=== PATIENT | male | born 1935 | race Caucasian/White ===

== ENCOUNTER 2017-04-17 15:29 | Emergency (ER) | payer MEDICARE ==
[2017-04-17] MEDS ORDERED: HEPARIN SOD (PORCINE) 5000 UNITS/ML VIAL (15:30)
[2017-04-17] MEDS ORDERED: CLOPIDOGREL 75 MG TAB (15:30)
[2017-04-17] MEDS ORDERED: HEPARIN 25,000 UNITS/250 ML D5W BAG (100 UNITS/ML) (15:30)
[2017-04-17] MEDS ORDERED: TENECTEPLASE 50 MG KIT (TNKase)(J3101) (15:30)
[2017-04-17] MEDS ORDERED: ASPIRIN 81 MG CHEW TABLET (15:30)
[2017-04-17] MEDS: ASPIRIN 81 MG CHEW TABLET PO (16:09)
[2017-04-17] MEDS: CLOPIDOGREL 75 MG TAB PO (16:09)
[2017-04-17] MEDS: HEPARIN SOD (PORCINE) 5000 UNITS/ML VIAL IV (16:10)
[2017-04-17 16:13] LABS: BASO % 0.4 % (0.0-1.0); EOS # 0.2 10^3/uL (0.0-0.50); EOS % 1.6 % (0.0-3.0); HEMATOCRIT 45.7 % (42.0-52.0); HEMOGLOBIN 15.2 g/dl (14.0-18.0); IMMATURE GRANULOCYTE % 0.2 % (0-0); LYMPH # 2.2 10^3/uL (1.5-4.5); LYMPH % 23.8 % (24.0-44.0); MEAN CORPUSCULAR HEMOGLOBIN 27.2 pg (27.0-33.0); MEAN CORPUSCULAR HGB CONC 33.3 g/dl (32.0-36.5); MEAN CORPUSCULAR VOLUME 81.9 fl (80.0-96.0); MONO # 0.7 10^3/uL (0.0-0.8); MONO % 7.8 % (0.0-5.0); NEUTROPHILS # 6.1 10^3/uL (1.8-7.7); NEUTROPHILS % 66.2 % (36.0-66.0); PLATELET COUNT, AUTOMATED 220 10^3/uL (150-450); RED BLOOD COUNT 5.58 10^6/uL (4.30-6.10); RED CELL DISTRIBUTION WIDTH 14.2 % (11.5-14.5); WHITE BLOOD COUNT 9.2 10^3/uL (4.0-10.0)
[2017-04-17] MEDS: HEPARIN DRIP 25,000 UNITS in APPROPRIATE DILUENT 1 EA IV (16:14)
[2017-04-17] MEDS: TENECTEPLASE 50 MG KIT (TNKase)(J3101) IV (16:14)
[2017-04-17 16:23] LABS: INR 1.02; PROTHROMBIN TIME 13.5 SECONDS (12.4-14.5)
[2017-04-17 16:24] LABS: PARTIAL THROMBOPLASTIN TIME 28.6 SECONDS (26.8-37.9)
[2017-04-17 16:37] LABS: ANION GAP 5 MEQ/L (8-16); BLOOD UREA NITROGEN 17 MG/DL (7-18); CALCIUM LEVEL 9.6 MG/DL (8.8-10.2); CARBON DIOXIDE LEVEL 32 MEQ/L (21-32); CHLORIDE LEVEL 104 MEQ/L (98-107); CK-MB VALUE MASS 2.8 NG/ML (0.0-3.6); CPK CREATINE PHOSPHOKINASE 159 U/L (39-308); CREATININE FOR GFR 0.98 MG/DL (0.70-1.30); GLOMERULAR FILTRATION RATE > 60.0 (>35); GLUCOSE, FASTING 109 MG/DL (70-100); MB/CK RELATIVE INDEX 1.76 (< OR =4); NT-PRO BNP 202 PG/ML (<450); POTASSIUM SERUM 3.9 MEQ/L (3.5-5.1); SODIUM LEVEL 141 MEQ/L (136-145); TROPONIN I < 0.02 NG/ML (< 0.10)
== END 2017-04-17 17:37 | disposition short-term general hospital (02) ==
LOC: M ED 15:29
DX: I21.19 ST elevation (STEMI) myocardial infarction involving other coronary artery of inferior wall (principal); I10 Essential (primary) hypertension; E78.5 Hyperlipidemia, unspecified; Z85.818 Personal history of malignant neoplasm of other sites of lip, oral cavity, and pharynx; Z98.890 Other specified postprocedural states; Z95.1 Presence of aortocoronary bypass graft
CPT/HCPCS: J3101

== ENCOUNTER → 2017-04-21 | Outpatient (REF) | payer MEDICARE ==
[2017-04-21 20:21] LABS: HEMATOCRIT 43.5 % (42.0-52.0); HEMOGLOBIN 14.5 g/dl (14.0-18.0); MEAN CORPUSCULAR HEMOGLOBIN 27.2 pg (27.0-33.0); MEAN CORPUSCULAR HGB CONC 33.3 g/dl (32.0-36.5); MEAN CORPUSCULAR VOLUME 81.6 fl (80.0-96.0); PLATELET COUNT, AUTOMATED 222 10^3/uL (150-450); RED BLOOD COUNT 5.33 10^6/uL (4.30-6.10); RED CELL DISTRIBUTION WIDTH 14.3 % (11.5-14.5)
== END ==
LOC: M LAB REF 18:32
DX: R21 Rash and other nonspecific skin eruption (principal)
CPT/HCPCS: 85027

== ENCOUNTER → 2018-04-22 | Outpatient (REF) | payer MEDICARE ==
[~2018-04-22] MED LIST: ASPI81TA85 PO; AVOD0.5C PO; CORE6.25 PO; FINACRY PO; FLOM0.4C39 PO; HYDR-3713 PO; HYDR25TAB PO; KLOR1TAB77 PO; LEVA1TAB2 PO; RANI15TA PO; TYLE500T78 PO
[2018-04-22 21:01] LABS: HEMATOCRIT 44.2 % (42.0-52.0); HEMOGLOBIN 14.1 g/dl (13.5-17.5); MEAN CORPUSCULAR HEMOGLOBIN 26.8 pg (27.0-33.0); MEAN CORPUSCULAR HGB CONC 31.9 g/dl (32.0-36.5); PLATELET COUNT, AUTOMATED 283 10^3/uL (150-450); RED BLOOD COUNT 5.26 10^6/uL (4.30-6.10); WHITE BLOOD COUNT 7.1 10^3/uL (4.0-10.0)
[2018-04-22 21:18] LABS: BLOOD UREA NITROGEN 20 MG/DL (7-18); CALCIUM LEVEL 8.6 MG/DL (8.8-10.2); CARBON DIOXIDE LEVEL 29 MEQ/L (21-32); CHLORIDE LEVEL 101 MEQ/L (98-107); CREATININE FOR GFR 0.91 MG/DL (0.70-1.30); GLOMERULAR FILTRATION RATE > 60.0 (>35); GLUCOSE, FASTING 70 MG/DL (70-100); POTASSIUM SERUM 4.6 MEQ/L (3.5-5.1); SODIUM LEVEL 138 MEQ/L (136-145)
== END ==
LOC: M LAB REF 09:58
PROVIDERS: ATTEND Internal Medicine
DX: S70.01XA Contusion of right hip, initial encounter (principal); S20.219A Contusion of unspecified front wall of thorax, initial encounter

== ENCOUNTER 2019-05-03 16:19 | Inpatient (IN) | payer MEDICARE ==
[~2019-05-03] VITALS: Ht 170.2 cm; Wt 71.7 kg
[~2019-05-03 16:19] MED LIST changes: +HYDR-2541 PO; -HYDR25TAB PO
[2019-05-03 17:32] LABS: BASO % 0.4 % (0.0-1.0); EOS # 0.1 10^3/uL (0.0-0.5); EOS % 0.7 % (0.0-3.0); HEMATOCRIT 48.6 % (42.0-52.0); HEMOGLOBIN 15.8 g/dl (13.5-17.5); LYMPH # 1.6 10^3/uL (1.5-5.0); MEAN CORPUSCULAR HEMOGLOBIN 26.9 pg (27.0-33.0); MEAN CORPUSCULAR HGB CONC 32.5 g/dl (32.0-36.5); MEAN CORPUSCULAR VOLUME 82.7 fl (80.0-96.0); MONO # 0.5 10^3/uL (0.0-0.8); MONO % 4.7 % (0.0-5.0); NEUTROPHILS # 9.1 10^3/uL (1.5-8.5); NEUTROPHILS % 79.7 % (36.0-66.0); PLATELET COUNT, AUTOMATED 228 10^3/uL (150-450); RED BLOOD COUNT 5.88 10^6/uL (4.30-6.10); WHITE BLOOD COUNT 11.4 10^3/uL (4.0-10.0)
[2019-05-03 17:44] LABS: INR 1.06; PROTHROMBIN TIME 13.6 SECONDS (11.8-14.0)
[2019-05-03 17:45] LABS: PARTIAL THROMBOPLASTIN TIME 29.9 SECONDS (25.0-38.4)
[2019-05-03 18:00] LABS: BLOOD UREA NITROGEN 27 MG/DL (7-18); CALCIUM LEVEL 9.6 MG/DL (8.8-10.2); CARBON DIOXIDE LEVEL 31 MEQ/L (21-32); CHLORIDE LEVEL 102 MEQ/L (98-107); CK-MB VALUE MASS 1.4 NG/ML (<3.6); CPK CREATINE PHOSPHOKINASE 88 U/L (39-308); CREATININE FOR GFR 1.26 MG/DL (0.70-1.30); GLOMERULAR FILTRATION RATE 58.2 (>35); GLUCOSE, FASTING 127 MG/DL (70-100); MB/CK RELATIVE INDEX 1.59 (< OR =4); POTASSIUM SERUM 3.5 MEQ/L (3.5-5.1); SODIUM LEVEL 138 MEQ/L (136-145); TROPONIN I < 0.02 NG/ML (< 0.10)
--- NOTE | 2019-05-03 18:12 | REP ---
Portable chest x-ray: Sitting AP view. History: CVA. Comparison chest x-ray: April 17, 2017. Findings: There is a right-sided Dceqqs-O-Htyo catheter in place with its tip in the expected location of the superior vena cava. The patient is status post prior median sternotomy. Monitoring electrodes are seen. Heart is not felt to be enlarged. Pulmonary vasculature is not increased. Lung house are clear. Pleural angles are sharp. Impression: Prior sternotomy. Oowevh-F-Wsge catheter. No active disease. Electronically Signed by Derik Strong MD 05/04/2019 10:13 A
--- NOTE | 2019-05-03 18:13 | REP ---
CT brain without contrast: History: CVA. No comparison study. CT findings: Digital preliminary glass sander radiograph is unremarkable. The patient is edentulous. Bone window settings demonstrate an intact bony calvarium. There is a mucous retention cyst visible incidentally in the left maxillary sinus. This measures 1.7 cm in diameter. Visualized paranasal sinuses are otherwise clear. No intra orbital abnormality is appreciated. There is moderate vascular calcification in the distal internal carotid and distal vertebral arteries. On soft tissue window settings, there is mild generalized atrophy. There is no evidence of intracranial hemorrhage. Mild small vessel changes are seen in the periventricular white matter of the supratentorial brain bilaterally. There is no evidence of infarct, mass, extra-axial fluid collection or midline shift. Impression: Diffuse atrophy and vascular calcification. Mild small vessel changes. No acute intracranial abnormality. Electronically Signed by Derik Strong MD 05/04/2019 10:13 A
[2019-05-03] MEDS ORDERED: TETRACAINE 0.5% OPHTH SOLN 4ML OU ONE (19:15)
[2019-05-03] MEDS ORDERED: CARVedilol 6.25 MG TAB PO ONE (20:00)
[2019-05-03] MEDS ORDERED: ACETAMINOPHEN 325 MG TAB PO ONE (20:15)
--- NOTE | 2019-05-03 20:22 | ECGEPIP ---
[facility] - ED Test Date: 2019-05-03 Pat Name: LISSETH BLACKBURN Department: Room: - Gender: Male [employer] Operator: YOHANA : 1935 Requested By: Jose Edmondson Order Number: [id number] Reading MD: Margarita Cee Measurements Intervals [place] Rate: 63 P: 38 UT: 225 QRS: 31 QRSD: 109 T: 50 QT: 418 QTc: 429 Interpretive Statements SINUS RHYTHM WITH FIRST DEGREE AV BLOCK WITH FREQUENT VENTRICULAR PREMATURE COMPLEXES INFERIOR MYOCARDIAL INFARCTION, PROBABLY OLD NSTTW abnormalities INCREASED ECTOPY 04/17/17 Electronically Signed on 05-03-2019 20:21:47 EST by Margarita Cee
[2019-05-03] MEDS ORDERED: ASPI-161 PO (21:08)
[2019-05-03] MEDS ORDERED: ACET-897 PO (21:08)
[2019-05-03] MEDS ORDERED: BRIL90TA PO (21:08)
[2019-05-03] MEDS ORDERED: HYDR25TAB PO (21:08)
[2019-05-03] MEDS ORDERED: VITMTA PO (21:08)
[2019-05-03] MEDS ORDERED: POLYOPD OU (21:08)
[2019-05-03] MEDS ORDERED: CARV12.5 PO (21:08)
[2019-05-03] MEDS ORDERED: FAMO1TAB11 PO (21:08)
[2019-05-03] MEDS ORDERED: ACETAMINOPHEN 500 MG TAB PO PRN (22:45)
[2019-05-03] MEDS ORDERED: FAMOTIDINE 20 MG TAB PO PRN (22:45)
[2019-05-03] MEDS ORDERED: POTASSIUM CHLORIDE 10 MEQ SR TABLET PO ONE (22:45)
[2019-05-03] MEDS ORDERED: POLYVINYL ALCOHOL OPHTH SOLN 15 ML(LIQUITEARS) OU PRN (22:45)
[2019-05-03 22:48] LABS: ERYTHROCYTE SEDIMENTATION RATE 4 mm/hr (0-20)
[2019-05-04 00:53] VITALS: BP 133/77
[2019-05-04] MEDS: TICAGRELOR 90 MG TABLET (BRILINTA) PO SCH ×3 (01:33→21:36)
[2019-05-04 06:00] VITALS: BP 125/72
--- NOTE | 2019-05-04 07:54 | HPE ---
DATE OF ADMISSION: 05/03/2019 PRIMARY CARE PROVIDER: Dr. Margarita Welch CHIEF COMPLAINT: Left hand numbness and weakness, right sided eye pain and headache. HISTORY OF PRESENT ILLNESS: This is an 83-year-old male who presented to the emergency department after having left hand weakness starting yesterday. He reports that yesterday he noticed that his left hand became numb and weak. He lost his steamer tender strength and was dropping things. He did not think much of it, and he reported to the emergency department today when he developed a right-sided headache at noon. He also developed right eye pain with this, but denies any changes to his vision. He denies any dysarthria or difficulty walking. He says that his left arm numbness has completely resolved and he is able to steamer tender things again. He denies any other diminished sensation or decreased motor strength. He denies any changes to his hearing, taste or smell. He describes his right eye pain as more achy in nature. He denies odynophagia. PAST MEDICAL HISTORY: 1. Benign prostatic hypertrophy (BPH) status post transurethral resection of prostate (TURP) and transurethral electro repolarization of the prostate. 2. Hypertension. 3. Hyperlipidemia, has tried multiple statin medications and has been intolerant of them. 4. Coronary artery disease status post open heart surgery with four-vessel bypass and subsequent percutaneous coronary intervention (PCI) with stenting two years ago, on Brilinta. 5. History of a heart attack in 2004. 6. Throat cancer status post chemotherapy. 7. 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 PAST SURGICAL HISTORY: 1. Open heart surgery in 2004 with a four-vessel bypass. 2. Neck dissection with removal of lymph nodes from his lips, cheeks and neck. 3. Lip surgery in 2012 for skin cancer. 3. TURP in 2013. Home medications: - Tylenol 1000 mg by mouth every 6 hours as needed - aspirin 81 mg daily - carvedilol 12.5 mg by mouth twice a day - famotidine 20 mg by mouth as needed for acid reflux - Hydrochlorothiazide 25 mg by mouth every two days - multivitamin 1 tablet by mouth daily - Artificial tears 1 drop both eyes four times a day for dry eyes - Brilinta 90 mg by mouth twice a day FAMILY HISTORY Mother and father both . He has one son who from bone cancer age 50. SOCIAL HISTORY: The patient lives alone. He is a former smoker and quit in the early 70s after only a couple of years of smoking. He denies any alcohol or drug use. He does have a manuel tzu and a cat at home. He does live alone. Denies any recent travel. ALLERGIES: STATIN MEDICATIONS (intolerant with muscle cramps). REVIEW OF SYSTEMS: Constitutional: Denies any weight loss, fevers, chills or night sweats. HEENT: Denies vision changes, double vision, scotomas, runny nose, epistaxis, sinus pain, tinnitus, sore throat or odynophagia. Does admit to a right-sided headache with some eye pain Cardiovascular: Denies chest pain, shortness of breath, paroxysmal nocturnal dyspnea, orthopnea, edema or palpitations. Respiratory: Denies any cough, sputum production wheezes, hemoptysis or shortness of breath Gastrointestinal: Denies any abdominal pain, nausea, vomiting, diarrhea, constipation, obstipation, hematemesis, hematochezia, melena or tenesmus. Genitourinary: Positive for history of BPH but denies any incontinence, dysuria, hematuria, nocturia, polyuria or hesitancy Musculoskeletal: Positive for some right lower extremity chronic arthritis. Denies any new muscle pain, joint swelling or decreased range of motion or crepitus. Integumentary: Denies any new pruritus, rashes, stria or lesions. Neuro: Denies any changes to his vision, smell, hearing or taste, denies seizures. Positive for right-sided headache with left-sided upper extremity paresthesias, anesthesias and weakness as described above. Psychiatric: Denies depression, anxiety, paranoia, anhedonia or episodes of sia. Endocrine: Denies mood swings, diarrhea, increased appetite, tremor, palpitations, constipation, dry skin, polydipsia, polyuria or polyphagia. Hematologic: Denies any easy bruising or bleeding, anemia, purpura or petechiae. Lymphatic: Denies any new lumps or bumps anywhere. PHYSICAL EXAMINATION: Vitals: Temperature 96.8, pulse 72 and regular, respiratory rate 20 and unlabored, blood pressure 116/75, pulse oximetry is 95% on room air. General: Elderly male in no acute distress lying in the stretcher. He is pleasant and cooperative. HEENT: Atraumatic, normocephalic. Extraocular eye movements are intact. He is wearing hearing aids. Mucous membranes are moist. No facial drooping is noted. The patient does not have his own teeth. He has upper and lower dentures. Neck: Supple, no masses. No thyromegaly. No carotid bruits appreciated. Chest: There is a port in the right upper side of his chest. Lungs are clear to auscultation bilaterally. No wheezes, rhonchi or rales. Heart: Regular rate and rhythm. Faint 04/27 systolic murmur heard best at the apex. No rubs or gallops appreciated. Abdomen: Normoactive bowel sounds, nontender, nondistended. Back: No costovertebral angle tenderness angle (CVA) bilaterally. Skin: No bruises or rashes noted. Extremities: Moving spontaneously. Neuro: Cranial nerves II-XII are grossly intact though the patient does have some left visual field deficits in the periphery. Reflexes were unable to be tested as the patient had a difficult time relaxing and following directions. He is alert and oriented to himself, the date and where he is as well as his situation. Sensation is intact throughout. Extraocular eye movements are intact, tongue is midline and the uvula rises symmetrically. He has 4/5 muscle strength in the left upper extremity, other extremities are 5/5 muscle strength. LABORATORY DATA: CBC: WBC 11.4, hemoglobin 15.8, hematocrit 48.6, platelets 223, differential shows 80% neutrophils 14% lymphocytes. Chemistry: Sodium 138, potassium 3.5, chloride 102, carbon dioxide 31, anion gap 5, BUN 27, creatinine 1.26, fasting glucose is 127, calcium 9.6, creatinine kinase 88, CK-MB 1.4, troponin less than 0.02. Coagulation: PT 13.6, INR 1.06, APTT 29.9. Blood type A+, antibody screen negative. IMAGING: Head CT done 05/03/2019 showed diffuse atrophy and vascular calcification with mild small vessel changes. No acute intracranial abnormality is noted. Chest x-ray done 05/03/2019 showed prior sternotomy with an Bkplsw-[id number] catheter in the right upper chest. No acute disease. Electrocardiogram: Sinus rhythm at 63 beats per minute with a first-degree block and frequent premature ventricular contractions (PVCs). Old inferior myocardial infarction with nonspecific ST-T wave abnormalities and increased ectopy from 04/17/2017. ASSESSMENT: This is an 83-year-old male with history of coronary vascular disease who is presenting after a left-sided upper extremity paresthesias and weakness with right-sided headache and eye pain. He will be admitted inpatient as we expect more than two midnights with routine labs and orders. PLAN: 1. Transient ischemic attack (TIA) versus an ischemic stroke. CT of the head showed diffuse atrophy and vascular calcification. Most of his symptoms have resolved. Will obtain an MRI and MRA as well as carotid ultrasounds. The patient is statin intolerant, so that has not been started at this time. According to the patient he has tried atorvastatin, rosuvastatin, simvastatin and pravastatin. He is already on the Brilinta as well as aspirin due to his prior cardiac stent. Will also observe on telemetry. 2. Hypertensive heart disease with coronary artery disease status post open heart surgery and coronary stenting. Continue dual antiplatelet therapy with aspirin and Brilinta. Continue his home carvedilol and hydrochlorothiazide. 3. Hyperlipidemia. Statin intolerant. The patient does say that his cholesterol has been high in the past and he has not tolerated multiple different statin therapies. 4. Gastroesophageal reflux disease. Continue home famotidine. 5. Deep venous thrombosis (DVT) prophylaxis will be heparin. DISPOSITION: Inpatient as we expect greater than two midnights.
--- NOTE | 2019-05-04 08:00 | REP ---
Clinical: Transient ischemic attack . Technique: Esteban scale and color Doppler evaluation using linear high frequency transducer Findings: Two-dimensional esteban scale and color images demonstrate normal arterial lumen with laminar flow and no appreciable narrowing. Color Doppler interrogation demonstrates normal arterial wave patterns and velocities with no significant spectral broadening. Normal flow direction is appreciated in the bilateral vertebral arteries. RIGHT (cm/s) LEFT (cm/s) ICA peak systolic velocity 162.5 102.2 ICA diastolic velocity 52.4 34.1 ECA peak systolic velocity 142.3 118.5 CCA peak systolic velocity 103.5 106.6 ICA/CCA ratio 1.6 1.0 Impression: Based on set standards, narrowing through the right bulb/proximal ICA at the 50-69% range and through the left bulb/proximal ICA at the less than 50% range. Electronically Signed by Michael Triplett MD 05/04/2019 07:53 A
[2019-05-04] MEDS: HEPARIN SOD (PORCINE) 5000 UNITS/ML VIAL (J1644 PER 1000UNITS) SC SCH ×2 (08:49→21:35)
[2019-05-04] MEDS: CARVedilol 12.5 MG TAB PO SCH ×2 (08:49→21:36)
[2019-05-04] MEDS: MULTIVITAMINS/MINERALS THERAP 1 TAB PO SCH (08:49)
[2019-05-04] MEDS: ASPIRIN 81 MG ENTERIC TAB PO SCH (08:50)
--- NOTE | 2019-05-04 10:43 | REPVR ---
PROCEDURE INFORMATION: Exam: MR Head Without Contrast Exam date and time: 05/04/2019 9:49 AM Age: 83 years old Clinical indication: Dizziness; Additional info: TIA v ischemic stroke TECHNIQUE: Imaging protocol: MR of the head without contrast. COMPARISON: CT Head without contrast 05/03/2019 4:48 PM FINDINGS: Brain: Small non contiguous foci of clustered true diffusion restriction in the right cronin radiata, also right precentral gyrus in keeping with punctate acute to subacute infarcts; there is correlative cytotoxic edema on the T2 weighted imaging, no evidence of hemorrhagic conversion. The brain otherwise demonstrates mild generalized volume loss. Patchy foci of increased signal intensity in the deep white matter most likely representing mild to moderate chronic small vessel ischemic change. Ventricles: The ventricles appear mildly enlarged in keeping with volume loss. Bones/joints: Unremarkable. Soft tissues: Unremarkable. Sinuses: Trace ethmoid mucosal thickening. Retention cyst or polyp in the left maxillary sinus. Mastoid air cells: Normal as visualized. No mastoid effusion. Orbits: Unremarkable. IMPRESSION: Several focal, recent acute to subacute right cronin radiata and frontal cortical infarcts. Electronically signed by: Maribel Saha On 05/04/2019 10:43:37 AM
--- NOTE | 2019-05-04 10:49 | REPVR ---
PROCEDURE INFORMATION: Exam: MR Angiogram Head Without Contrast, Arteries Exam date and time: 05/04/2019 9:49 AM Age: 83 years old Clinical indication: Weakness; Additional info: TIA v ischemic stroke TECHNIQUE: Imaging protocol: MR angiogram head without contrast. Exam focused on the arteries. 3D rendering: MIP and/or 3D reconstructed images were created by the technologist. COMPARISON: CT Head without contrast 05/03/2019 4:48 PM FINDINGS: Right internal carotid artery: Unremarkable. Intracranial segment is patent with no significant stenosis. No aneurysm. Right anterior cerebral artery: Unremarkable. No occlusion or significant stenosis. No aneurysm. Right middle cerebral artery: Unremarkable. No occlusion or significant stenosis. No aneurysm. Right posterior cerebral artery: origin. No occlusion or significant stenosis. No aneurysm. 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 No occlusion or significant stenosis. No aneurysm. Left internal carotid artery: Unremarkable. Intracranial segment is patent with no significant stenosis. No aneurysm. Left anterior cerebral artery: Unremarkable. No occlusion or significant stenosis. No aneurysm. Left middle cerebral artery: Unremarkable. No occlusion or significant stenosis. No aneurysm. Left posterior cerebral artery: Unremarkable. No occlusion or significant stenosis. No aneurysm. Left vertebral artery: Unremarkable. No occlusion or significant stenosis. No aneurysm. Basilar artery: Unremarkable. No occlusion or significant stenosis. No aneurysm. IMPRESSION: No major proximal vessel branch occlusion seen. Electronically signed by: Maribel Saha On 05/04/2019 10:48:57 AM
[2019-05-04 10:54] LABS: CHOLESTEROL RISK RATIO 6.825 (<5)
[2019-05-04 14:00] VITALS: BP 116/73
--- NOTE | 2019-05-04 15:07 | IPNPDOC ---
Subjective Date Seen The patient was seen on 05/04/19. Subjective Chief Complaint/HPI Mr. Palomino is an 83 year old male admitted to the hospital for suspected stroke; pt had noted tingling in his left fingers the night before, in the morning, he tried to pick something up and had lost his community worker strength. He developed a headache over the right eye which prompted him to go to an urgent care center. He was then transferred to [facility] ED. His community worker strength returned soon after he was seen in the ED. His BP was elevated over baseline and he was given his home Coreg; after which his BP stabilized. Pt denied missing any doses of his medications at home. Pt is seen with his [id number]-ru-uqc this afternoon who provides some of the history. Mr. Palomino sees Dr. Irvin (hr associate) who has tried several statins in the past, however, pt is extremely intolerant of them. Pt has been on Brilinta for ~ 1.5 years (since his MS); he is intolerant of Clopidogrel which causes a rash. Other systems per HPI Objective Physical Examination General Exam: Positive: Alert, Cooperative, No Acute Distress Eye Exam: Positive: Conjunctiva & lids normal, EOMI; Negative: Sclera icteric ENT Exam: Positive: Atraumatic, Mucous membr. moist/pink Neck Exam: Positive: Supple; Negative: thyromegaly Chest Exam: Positive: Clear to auscultation, Normal air movement Heart Exam: Positive: Rate Normal, Irregular Rhythm (frequent VPCs vs A-fib ), Normal S1, Normal S2, Murmurs (2/6SM ) Abdomen Exam: Positive: Normal bowel sounds, Soft; Negative: Tenderness, Hepatospenomegaly Extremity Exam: Positive: Normal pulses; Negative: Clubbing, Cyanosis, Edema Skin Exam: Positive: Nl turgor and temperature Neuro Exam: Positive: Strength at 5/5 X4 ext, Cranial Nerves 3-12 NL, Other (paralysis of the L lip 2/2 skin cancer and surgical exision ); Negative: Normal Speech Psych Exam: Positive: Mood NL, Memory Intact, Oriented x 3 Assessment /Plan Assessment Mr. Palomino is an 83 year old male admitted to the hospital for suspected stroke; pt had noted tingling in his left fingers the night before, in the morning, he tried to pick something up and had lost his community worker strength. He developed a headache over the right eye which prompted him to go to an urgent care center. He was then transferred to [facility] ED. His community worker strength returned soon after he was seen in the ED. His BP was elevated over baseline and he was given his home Coreg; after which his BP stabilized. Pt denied missing any doses of his medications at home. Pt is seen with his [id number] this afternoon who provides some of the history. Mr. Palomino sees Dr. Irvin (hr associate) who has tried several statins in the past, however, pt is extremely intolerant of them. Pt has been on Brilinta for ~ 1.5 years (since his MS); he is intolerant of Clopidogrel which causes a rash. Pt has a PMHx which includes: HTN, CAD with Hx of MS (CABG and stents), HLD (intolerant of statins), BPH s/p TURP, GERD, Hx of throat cancer treated with chemo, Hx of skin cancer involving the L side of the lip and face. MRI-Brain without Contrast IMPRESSION: "Several focal, recent acute to subacute right cronin radiata and frontal cortical infarcts." MRA BRAIN W/O CONTRAST IMPRESSION: "No major proximal vessel branch occlusion seen." Acute CVA - per MRI - no residual symptoms per pt - pt. has a Hx of A-fib, currently on Brilinta and ASA - placed on telemetry - neurology consultation placed; further management per recommendation(s) Hypertension - currently well-controlled with home Coreg, HCTZ q2d CAD - continue ASA and Brilinta - pt is allergic to Plavix HLD - pt severely intolerant of statins - no acute intervention GERD - continue with Famotidine Plan/VTE VTE Prophylaxis Ordered?: Yes (Heparin ) VS, I&O, 24H, Fishbone Vital Signs/I&O Vital Signs Date Time Temp Pulse Resp B/P (MAP) Pulse Ox O2 Delivery O2 Flow Rate FiO2 05/04/19 08:49 66 125/72 05/04/19 06:00 98.7 15 94 Room Air I&O- Last 24 Hours up to 6 AM 05/04/19 06:00 Intake Total 200 ml Output Total 325 ml Balance -125 ml Laboratory Data 24H LABS Laboratory Tests 2 05/03/19 16:48: Immature Granulocyte % (Auto) 0.5, Neutrophils (%) (Auto) 79.7H, Lymphocytes (%) (Auto) 14.0L, Monocytes (%) (Auto) 4.7, Eosinophils (%) (Auto) 0.7, Basophils (%) (Auto) 0.4, Neutrophils # (Auto) 9.1H, Lymphocytes # (Auto) 1.6, Monocytes # (Auto) 0.5, Eosinophils # (Auto) 0.1, Basophils # (Auto) 0.0, Nucleated Red Blood Cells % (auto) 0.0, Erythrocyte Sedimentation Rate 4, Prothrombin Time 13.6, Prothromb Time International Ratio 1.06, Activated Partial Thromboplast Time 29.9, Anion Gap 5L, Glomerular Filtration Rate 58.2, Calcium Level 9.6, Total Creatine Kinase 88, Creatine Kinase MB 1.4, Creatine Kinase MB Relative Index 1.59, Troponin I < 0.02 05/03/19 17:16: Bedside Glucose (Misc Panel) 109 05/04/19 10:01: Triglycerides Level 126, Total Cholesterol 273H, LDL Cholesterol 208H, Non-HDL Cholesterol (LDL + VLDL) 233, Total HDL Cholesterol 40, Cholesterol/HDL Ratio 6.825H CBC/BMP Laboratory Tests 05/03/19 16:48 SHERLY CALERO PA-C May 04, 2019 15:07
[2019-05-04 22:00] VITALS: BP 137/60
[2019-05-05 06:00] VITALS: BP 129/70
[2019-05-05 06:10] LABS: HEMOGLOBIN 14.4 g/dl (13.5-17.5); MEAN CORPUSCULAR HEMOGLOBIN 26.8 pg (27.0-33.0); MEAN CORPUSCULAR HGB CONC 32.7 g/dl (32.0-36.5); MEAN CORPUSCULAR VOLUME 81.8 fl (80.0-96.0); PLATELET COUNT, AUTOMATED 207 10^3/uL (150-450); RED BLOOD COUNT 5.38 10^6/uL (4.30-6.10); WHITE BLOOD COUNT 6.6 10^3/uL (4.0-10.0)
[2019-05-05 06:34] LABS: ALBUMIN 3.4 GM/DL (3.2-5.2); ALT/SGPT 19 U/L (12-78); BILIRUBIN,TOTAL 0.7 MG/DL (0.2-1.0); BLOOD UREA NITROGEN 27 MG/DL (7-18); CALCIUM LEVEL 8.6 MG/DL (8.8-10.2); CARBON DIOXIDE LEVEL 26 MEQ/L (21-32); CHLORIDE LEVEL 106 MEQ/L (98-107); CREATININE FOR GFR 0.97 MG/DL (0.70-1.30); GLOMERULAR FILTRATION RATE > 60.0 (>35); GLUCOSE, FASTING 100 MG/DL (70-100); POTASSIUM SERUM 3.6 MEQ/L (3.5-5.1); SODIUM LEVEL 138 MEQ/L (136-145); TOTAL PROTEIN 6.9 GM/DL (6.4-8.2)
[2019-05-05] MEDS ORDERED: hydroCHLOROthiazide 25 MG TAB PO SCH (09:00)
[2019-05-05] MEDS: HEPARIN SOD (PORCINE) 5000 UNITS/ML VIAL (J1644 PER 1000UNITS) SC SCH (09:22)
[2019-05-05] MEDS: ASPIRIN 81 MG ENTERIC TAB PO SCH (09:22)
[2019-05-05] MEDS: TICAGRELOR 90 MG TABLET (BRILINTA) PO SCH (09:22)
[2019-05-05] MEDS: MULTIVITAMINS/MINERALS THERAP 1 TAB PO SCH (09:22)
[2019-05-05 09:23] VITALS: BP 131/65
[2019-05-05] MEDS: CARVedilol 12.5 MG TAB PO SCH (09:23)
--- NOTE | 2019-05-05 09:38 | CR ---
DATE OF CONSULTATION: 05/05/2019 REFERRING PROVIDER: Dr. Angela Swann REASON FOR CONSULTATION: Acute stroke. HISTORY OF PRESENT ILLNESS: The patient is an 83-year-old male with past medical history significant for uncontrolled hyperlipidemia due to statin intolerance and history of coronary artery disease status post quintuple bypass and stenting. The patient presents with symptoms of left hand paresthesias and weakness occurring on Wednesday evening. The patient states that by Wednesday the symptoms were getting worse. He was having headache over the right eye. He decided come in to the hospital today. The patient was noted to have MRI evidence of scattered right middle cerebral artery (MCA) territorial ischemic strokes. The patient was outside of the window for tPA. He is currently on aspirin and Brilinta. The patient has an allergy to Plavix. The patient cannot tolerate any statin therapy it seems. The patient at this point in time states most of his symptoms have improved. He does have some residual weakness of his left upper extremity with a pronator drift. REVIEW OF SYSTEMS: 14-point review of systems obtained and is negative except as per history of present illness (HPI). PAST MEDICAL HISTORY: Hypertension, coronary artery disease (CAD), history of coronary artery bypass graft (CABG) and stents, hyperlipidemia uncontrolled, benign prostatic hypertrophy (BPH) status post transurethral resection of the prostate (TURP), gastroesophageal reflux disease (GERD), history of throat cancer status post chemotherapy, history of skin cancer involving the left side of his lip and face. FAMILY HISTORY: Noncontributory. SOCIAL HISTORY: The patient denies use of any tobacco, alcohol or illicit drugs. PHYSICAL EXAMINATION: Blood pressure is 116/73, pulse rate 71, respiratory rate is 18, temperature is 98.2 degrees Fahrenheit, oxygenation is 96% on room air. Current height is 5 feet 7 inches. Current weight is 71 kg. The patient is awake, alert, oriented to person, place and time. Speech, language, comprehension, and repetition are intact. Pupils are 2.5 mm round, reactive to light. Extraocular movements are intact in all directions. Sensation V1, V2 and V3 is intact to light touch. No facial asymmetry to activation. Palate elevates symmetrically. Tongue is midline. No weakness of sternocleidomastoids bilaterally. Hearing is subjectively decreased to finger rub. There is pronator drift of the left upper extremity. Strength is weaker on the left arm in the deltoid, triceps 4+, biceps are 5/5, iliopsoas is 4+, quadriceps are 5/5, tibialis anterior are 5/5. Sensory is intact to light touch in all four extremities. Coordination without any gross signs of ataxia or dysmetria. Gait deferred. ASSESSMENT: 83-year-old male with acute ischemic stroke, scattered stroke involving the right MCA territory, with transient left-sided paresthesias and residual weakness of the left arm and leg. PLAN: 1. Continue Brilinta at current dose. 2. Continue aspirin 81 mg by mouth daily. 3. Optimize hyperlipidemia through diet. 4. 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 To follow up with vascular surgery. Left ICA stenosis less than 50%. No high-grade intracranial stenosis noted. 5. Physical therapy (PT), occupational therapy (OT). 6. Continue telemetry monitoring. 7. Recommend echocardiogram. 8. The patient can followup at the [facility] upon discharge. 9. Cholesterol was 273, LDL 208, both significantly high, and need to be better controlled.
--- NOTE | 2019-05-05 12:41 | DS.PDOC ---
Discharge Summary General Date of Admission May 03, 2019 at 22:36 Date of Discharge 05/05/2019 Discharge Summary PROCEDURES PERFORMED DURING STAY: [None]. ADMITTING DIAGNOSES: 1. Transient ischemic attack (TIA) versus an ischemic stroke 2. 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 Hyperlipidemia 4. Gastroesophageal reflux disease DISCHARGE DIAGNOSES: 1. Acute CVA 2. Hypertension 3. CAD 4. HLD 5. GERD COMPLICATIONS/CHIEF COMPLAINT: TIA. HISTORY OF PRESENT ILLNESS: "This is an 83-year-old male who presented to the emergency department after having left hand weakness starting yesterday. He reports that yesterday he noticed that his left hand became numb and weak. 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 He did not think much of it, and he reported to the emergency department today when he developed a right- sided headache at noon. He also developed right eye pain with this, but denies any changes to his vision. He denies any dysarthria or difficulty walking. 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 He denies any other diminished sensation or decreased motor strength. He denies any changes to his hearing, taste or smell. He describes his right eye pain as more achy in nature. He denies odynophagia. HOSPITAL COURSE: Pt was admitted as noted above. Much of his symptoms had resolved soon after he arrived at the ED. MRI, MRA and carotid USG results noted below. Pt placed on telemetry; no events recorded. FLP showed elevated cholesterol and LDL cholesterol; however, pt reported and extreme intolerance of statins. Neuro consult placed; recommendations to follow-up with vascular surgery 2/2 R ICA stenosis 50-69%, continue ASA and Brilinta and optimize HLD through diet and neurology f/u on d/c. DISCHARGE MEDICATIONS: Please see below. ALLERGIES: Please see below. PHYSICAL EXAMINATION ON DISCHARGE: VITAL SIGNS: Please see below. General Exam: Positive: Alert, Cooperative, No Acute Distress Eye Exam: Positive: Conjunctiva & lids normal, EOMI; Negative: Sclera icteric ENT Exam: Positive: Atraumatic, Mucous membr. 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 IMAGING: MRA BRAIN W/O CONTRAST IMPRESSION: No major proximal vessel branch occlusion seen MRI-Brain without Contrast IMPRESSION: Several focal, recent acute to subacute right cronin radiata and frontal cortical infarcts. Duplex,carotid (complete) Impression: Based on set standards, narrowing through the right bulb/proximal ICA at the 50-69% range and through the left bulb/proximal ICA at the less than 50% range. CT Head without contrast Impression: Diffuse atrophy and vascular calcification. Mild small vessel changes. No acute intracranial abnormality. PORTABLE CHEST X-RAY Impression: Prior sternotomy. Lxgnar-A-Pwps catheter. No active disease. ACTIVITY: [As tolerated]. DIET: Regular DISCHARGE PLAN: Discharge home. Follow-up with neurology, vascular surgery and cardiology as noted on discharge instructions. DISPOSITION: 01 Home, Self-Care. DISCHARGE INSTRUCTIONS: 1. see above ITEMS TO FOLLOWUP ON ON OUTPATIENT: 1. see above DISCHARGE CONDITION: [Stable]. TIME SPENT ON DISCHARGE: 33 minutes. Vital Signs/I&Os Vital Signs Date Time Temp Pulse Resp B/P (MAP) Pulse Ox O2 Delivery O2 Flow Rate FiO2 05/05/19 09:23 80 131/65 05/05/19 06:00 98.1 17 96 05/04/19 22:00 Room Air I&O- Last 24 Hours up to 6 AM 05/05/19 06:00 Intake Total 1200 ml Output Total 1250 ml Balance -50 ml Laboratory Data Labs 24H Laboratory Tests 2 05/05/19 05:20: Nucleated Red Blood Cells % (auto) 0.0, Anion Gap 6L, Glomerular Filtration Rate > 60.0, Calcium Level 8.6L, Total Bilirubin 0.7, Aspartate Amino Transf (AST/SGOT) 11, Alanine Aminotransferase (ALT/SGPT) 19, Alkaline Phosphatase 58, Total Protein 6.9, Albumin 3.4, Albumin/Globulin Ratio 0.97L CBC/BMP Laboratory Tests 05/05/19 05:20 Discharge Medications Scheduled Aspirin (Aspirin EC) 81 Mg Tablet.dr, 81 MG PO DAILY, (Reported) Carvedilol (Carvedilol) 12.5 Mg Tablet, 12.5 MG PO BID, (Reported) Hydrochlorothiazide (Hydrochlorothiazide) 25 Mg Tablet, 25 MG PO Q2D, (Reported) Multivitamins (Thera M Plus Tablet) 1 Each Tablet, 1 TAB PO DAILY, (Reported) Ticagrelor Base (Brilinta) 90 Mg Tablet, 90 MG PO BID, (Reported) Scheduled PRN Acetaminophen (Tylenol Extra Strength) 500 Mg Tablet, 1,000 MG PO Q6H PRN for PAIN / FEVER, (Reported) Famotidine (Famotidine) 20 Mg Tablet, 20 MG PO BID PRN for ACID REFLUX, (Reported) Polyvinyl Alcohol (Artificial Tears) 15 Ml Drops, 1 DROP OU QID PRN for DRY EYES, (Reported) Allergies Coded Allergies: No Known Allergies (Unverified , 01/26/14) SHERLY CALERO PA-C May 05, 2019 12:41
== END 2019-05-05 11:06 | disposition home or self-care (01) | DRG 65 ==
LOC: M ED 16:19 → M ED INP 22:36 → ENRESERV 22:55 → M MSPAV 05-04 00:53
PROVIDERS: ADMIT Internal Medicine; ATTEND Internal Medicine Nephrology
DX: I63.511 Cerebral infarction due to unspecified occlusion or stenosis of right middle cerebral artery (principal); G81.92 Hemiplegia, unspecified affecting left dominant side; N40.0 Benign prostatic hyperplasia without lower urinary tract symptoms; I11.9 Hypertensive heart disease without heart failure; E78.5 Hyperlipidemia, unspecified; I25.10 Atherosclerotic heart disease of native coronary artery without angina pectoris; Z95.5 Presence of coronary angioplasty implant and graft; I25.2 Old myocardial infarction; Z85.828 Personal history of other malignant neoplasm of skin; Z85.818 Personal history of malignant neoplasm of other sites of lip, oral cavity, and pharynx; Z92.21 Personal history of antineoplastic chemotherapy; Z79.82 Long term (current) use of aspirin; Z79.899 Other long term (current) drug therapy; Z88.8 Allergy status to other drugs, medicaments and biological substances

== ENCOUNTER → 2019-05-29 | Outpatient (REF) | payer MEDICARE ==
[~2019-05-29] MED LIST changes: +ACET-897 PO; +ASPI-161 PO; +BRIL90TA PO; +CARV12.5 PO; +FAMO1TAB11 PO; +HYDR25TAB PO; +POLYOPD OU; +VITMTA PO
[2019-05-29 09:56] LABS: CHOLESTEROL RISK RATIO 2.888 (<5)
== END ==
LOC: M LAB REF 09:10
PROVIDERS: ATTEND Internal Medicine Cardiovascular Disease
DX: E78.5 Hyperlipidemia, unspecified (principal)

== ENCOUNTER → 2020-06-19 | Outpatient (CLI) | payer MEDICARE, BC ==
[~2020-06-19] MED LIST changes: -ASPI81TA85 PO; +ASPI81TA86 PO; +HYDR-3490 PO; -HYDR25TAB PO; +ISOVUE-300 61% 50ML VIAL As Ordered ONE; +LIDOCAINE 1% MDV 20ML VIAL As Ordered ONE; +TRIAMCINOLONE ACETONIDE SUSP 40 MG/ML VIAL (J3301) As Ordered ONE
--- NOTE | 2020-06-19 17:42 | REP ---
INDICATION: OSTEOARTHRITIS RIGHT HIP. COMPARISON: None TECHNIQUE: The procedure was performed by TERESA Harp, under the direct supervision of Dr. Esteban. The benefits and risks of the procedure were explained to the patient, and an informed consent was obtained. Directly prior to the start of the procedure, a formal time-out was completed in the procedure room. The right femoral neck joint space was localized using fluoroscopic guidance. The skin was prepped and draped in a sterile fashion. Approximately 5 mL of 1% Lidocaine 10 mg/ml was used as a local anesthetic. Using fluoroscopic guidance, a #22 gauge spinal needle was inserted and advanced into the right femoral neck joint space. Approximately 1 mL of Isovue 300 was injected to verify placement. Six mL of a solution containing 5 mL 1% lidocaine 10 mg/ml and 1 mL Kenalog 40 milligrams/milliliter was injected into the joint space. The needle was removed and hemostasis was achieved. FINDINGS: The patient tolerated the procedure well and there were no immediate complications. IMPRESSION: 1. Fluoroscopic guided right hip intra-articular pain injection. 0.3 minutes of fluoroscopy time was utilized for this procedure. Some fluoroscopic images are performed with last image hold technology. These images require no additional radiation. <Electronically signed by Nathalie Ag > 06/19/20 1430 <Electronically signed by Juan Antonio Esteban > 06/19/20 [id number]
== END ==
LOC: M RADPRO 10:45
PROVIDERS: ATTEND Orthopaedic Surgery
DX: M16.11 Unilateral primary osteoarthritis, right hip (principal)
CPT/HCPCS: 20610; 77002; J3301; Q9967

== ENCOUNTER → 2023-01-14 | Day surgery (SDC) | payer MEDICARE, OTHER ==
[~2023-01-14] VITALS: Ht 170.2 cm; Wt 68.5 kg
[~2023-01-14] MED LIST changes: +ARTIDRO4 OU; +BSS IRRIG/VANCO(10MG)/TOBRA(5MG)/EPINEPH(1:1000-0.5CC)500ML BAG-ORONLY IR ONE; +CEFUROXIME 1MG/0.1ML INTRACAMERAL INJ As Ordered ONE; +CYCLOPENTOLATE 1% OPHTH SOLN 2ML BTL OS SCH; -ISOVUE-300 61% 50ML VIAL As Ordered ONE; -LIDOCAINE 1% MDV 20ML VIAL As Ordered ONE; +LIDOCAINE 1% SDV 5ML VIAL As Ordered ONE; +LIDOCAINE 3.5 % 1ML OPHTH TOPICAL GEL OU ONE; +MIDAZOLAM INJ 2MG/2ML VIAL As Ordered ONE; +OFLOXACIN 0.3 % (OCUFLOX) OPTH SOL 5ML OS ONE; +PHENYLEPHRINE 10% OPHTH SOL 5ML OS PRN; +PHENYLEPHRINE 2.5% OPHTH SOL 2ML OS SCH; -POLYOPD OU; -TRIAMCINOLONE ACETONIDE SUSP 40 MG/ML VIAL (J3301) As Ordered ONE; +TROPICAMIDE 1% OPHTH SOLN 15ML OS SCH; +fentaNYL 100 MCG/2 ML INJECTION As Ordered ONE
[2023-01-14 10:27] VITALS: BP 135/66; TEMP 97.4; O2SAT 95
== END | disposition home or self-care (01) ==
LOC: M SDC 08:30
PROVIDERS: ATTEND Ophthalmology
DX: H25.12 Age-related nuclear cataract, left eye (principal); H57.03 Miosis; I25.10 Atherosclerotic heart disease of native coronary artery without angina pectoris; I25.2 Old myocardial infarction; I10 Essential (primary) hypertension; Z95.5 Presence of coronary angioplasty implant and graft; Z86.73 Personal history of transient ischemic attack (TIA), and cerebral infarction without residual deficits; Z87.891 Personal history of nicotine dependence
CPT/HCPCS: 66982; J0697; J2250; J3010; V2632

== ENCOUNTER 2023-01-28 06:12 | Day surgery (SDC) | payer MEDICARE, OTHER ==
[~2023-01-28] VITALS: Ht 170.2 cm; Wt 68.8 kg
[~2023-01-28 06:12] MED LIST changes: -CEFUROXIME 1MG/0.1ML INTRACAMERAL INJ As Ordered ONE; -CYCLOPENTOLATE 1% OPHTH SOLN 2ML BTL OS SCH; -LIDOCAINE 1% SDV 5ML VIAL As Ordered ONE; -MIDAZOLAM INJ 2MG/2ML VIAL As Ordered ONE; +OFLOXACIN 0.3 % (OCUFLOX) OPTH SOL 5ML OD ONE; -OFLOXACIN 0.3 % (OCUFLOX) OPTH SOL 5ML OS ONE; +PHENYLEPHRINE 10% OPHTH SOL 5ML OD PRN; -PHENYLEPHRINE 10% OPHTH SOL 5ML OS PRN; -PHENYLEPHRINE 2.5% OPHTH SOL 2ML OS SCH; -TROPICAMIDE 1% OPHTH SOLN 15ML OS SCH; -fentaNYL 100 MCG/2 ML INJECTION As Ordered ONE
[2023-01-28] MEDS: PHENYLEPHRINE 2.5% OPHTH SOL 2ML OD SCH ×2 (06:24→06:35)
[2023-01-28] MEDS: TROPICAMIDE 1% OPHTH SOLN 15ML OD SCH ×2 (06:24→06:35)
[2023-01-28] MEDS: CYCLOPENTOLATE 1% OPHTH SOLN 2ML BTL OD SCH ×2 (06:24→06:35)
[2023-01-28] MEDS ORDERED: LIDOCAINE 1% SDV 5ML VIAL As Ordered ONE (06:33)
[2023-01-28] MEDS ORDERED: CEFUROXIME 1MG/0.1ML INTRACAMERAL INJ As Ordered ONE (06:34)
[2023-01-28] MEDS ORDERED: fentaNYL 100 MCG/2 ML INJECTION As Ordered ONE (07:38)
[2023-01-28] MEDS ORDERED: MIDAZOLAM INJ 2MG/2ML VIAL As Ordered ONE (07:38)
[2023-01-28 08:10] VITALS: BP 160/80; TEMP 98; O2SAT 97
== END 2023-01-28 08:12 | disposition home or self-care (01) ==
LOC: M SDC 06:12
PROVIDERS: ATTEND Ophthalmology
DX: H25.11 Age-related nuclear cataract, right eye (principal); I25.10 Atherosclerotic heart disease of native coronary artery without angina pectoris; I25.2 Old myocardial infarction; Z95.5 Presence of coronary angioplasty implant and graft; I10 Essential (primary) hypertension; Z87.891 Personal history of nicotine dependence; Z88.8 Allergy status to other drugs, medicaments and biological substances; Z79.899 Other long term (current) drug therapy
CPT/HCPCS: 66984; J0697; J2250; J3010; V2632

== ENCOUNTER → 2023-06-03 | Outpatient (CLI) | payer MEDICARE ==
[~2023-06-03] MED LIST changes: -ASPI-161 PO; +ASPI-615 PO; -BSS IRRIG/VANCO(10MG)/TOBRA(5MG)/EPINEPH(1:1000-0.5CC)500ML BAG-ORONLY IR ONE; -LIDOCAINE 3.5 % 1ML OPHTH TOPICAL GEL OU ONE; -OFLOXACIN 0.3 % (OCUFLOX) OPTH SOL 5ML OD ONE; -PHENYLEPHRINE 10% OPHTH SOL 5ML OD PRN
== END ==
LOC: M RAD 14:50
PROVIDERS: ATTEND Physician Assistant
DX: I63.9 Cerebral infarction, unspecified (principal); I65.23 Occlusion and stenosis of bilateral carotid arteries

== ENCOUNTER → 2024-07-08 | Outpatient (REF) | payer MEDICARE ==
[~2024-07-08] MED LIST changes: -FLOM0.4C39 PO; +TAMS-18 PO
[2024-07-08 11:47] LABS: HEMATOCRIT 41.6 % (42.0-52.0); HEMOGLOBIN 13.5 g/dl (13.5-17.5); MEAN CORPUSCULAR HEMOGLOBIN 26.3 pg (27.0-33.0); MEAN CORPUSCULAR HGB CONC 32.5 g/dl (32.0-36.5); MEAN CORPUSCULAR VOLUME 80.9 fl (80.0-96.0); PLATELET COUNT, AUTOMATED 238 10^3/uL (150-450); RED BLOOD COUNT 5.14 10^6/uL (4.30-6.10); WHITE BLOOD COUNT 7.4 10^3/uL (4.0-10.0)
[2024-07-08 12:12] LABS: CALCIUM LEVEL 9.3 MG/DL (8.3-10.6); CREATININE FOR GFR 0.99 MG/DL (0.70-1.30); GLOMERULAR FILTRATION RATE 73.3 (>35); POTASSIUM SERUM 3.4 MMOL/L (3.5-5.1)
== END ==
LOC: M LAB REF 10:20
PROVIDERS: ATTEND Internal Medicine Cardiovascular Disease
DX: I25.10 Atherosclerotic heart disease of native coronary artery without angina pectoris (principal); I63.9 Cerebral infarction, unspecified